=== PATIENT | female | born 1980 | race African-American/Black ===

== ENCOUNTER 2018-03-21 20:13 | Emergency (ER) | payer OTHER ==
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
[2018-03-21 21:06] LABS: HCG,QUALITATIVE URINE Negative
[2018-03-21 21:26] LABS: PH,URINE 5.5 (4.5-8); URINE APPEARANCE Clear; URINE BILIRUBIN 1+ (NEGATIVE); URINE COLOR Yellow; URINE GLUCOSE (UA) Negative (NEGATIVE); URINE KETONE 1+ (NEGATIVE); URINE LEUK ESTERASE Negative (NEGATIVE); URINE NITRITE Negative (NEGATIVE); URINE PROTEIN Trace (NEGATIVE)
[2018-03-21] MEDS ORDERED: KETOROLAC TROMETHAMINE 60 MG/2 ML VIAL IM ONE (21:33)
[2018-03-21] MEDS ORDERED: KETOROLAC TROMETHAMINE 30 MG/1 ML VIAL ONE (21:34)
[2018-03-22 02:43] VITALS: BP 135/72; PULSE 91; TEMP 98.1; BMI 44.8
== END 2018-03-21 23:14 | disposition home or self-care (01) ==
LOC: FER 20:13
PROC: 3E0233Z Introduction of Anti-inflammatory into Muscle, Percutaneous Approach (ICD-10-PCS; principal; 2018-03-21)
DX: S16.1XXA Strain of muscle, fascia and tendon at neck level, initial encounter (principal); S80.02XA Contusion of left knee, initial encounter; V43.52XA Car driver injured in collision with other type car in traffic accident, initial encounter; Y93.89 Activity, other specified; Y92.410 Unspecified street and highway as the place of occurrence of the external cause
CPT/HCPCS: 72050-TC-FY; 73562-TC-LT-FY; 81003; 84703; 99283-25